=== PATIENT | female | born 1945 | race Caucasian/White ===

== ENCOUNTER 2021-06-27 06:51 | Day surgery (SDC) | payer MEDICARE, OTHER ==
[2021-06-21 10:39] LABS: BASOPHILS % (AUTO) 0.5 % (0-1); EOSINOPHILS # (AUTO) 0.3 X10'3 (0-0.9); LYMPHOCYTES # (AUTO) 2.8 X10'3 (1.1-4.8); LYMPHOCYTES % (AUTO) 48.6 % (21-51); MEAN CORPUSCULAR HEMOGLOBIN 32.1 PG (27.0-31.0); MEAN CORPUSCULAR HGB CONC 34.1 g/dL (33.0-36.5); MEAN CORPUSCULAR VOLUME 94.2 FL (78-98); MEAN PLATELET VOLUME 9.1 FL (7.4-10.4); MONOCYTES # (AUTO) 0.7 X10'3 (0-0.9); MONOCYTES % (AUTO) 11.4 % (2-12); NEUTROPHILS % (AUTO) 34.5 % (42-75); PRE OP HEMATOCRIT 40.9 % (35.0-45.0); PRE OP HEMOGLOBIN 13.9 g/dL (12.0-16.0); PRE OP PLATELET COUNT 156 X10'3 (140-440); RED BLOOD COUNT 4.34 X10'6 (4.20-5.60); RED CELL DISTRIBUTION WIDTH 14.1 % (11.5-14.5)
[2021-06-21 11:19] LABS: ALBUMIN 3.3 G/DL (3.4-5.0); ALKALINE PHOSPHATASE 95 IU/L (46-116); BLOOD UREA NITROGEN 14 MG/DL (7-18); BUN/CREATININE RATIO 17.3 (6.6-38.0); CALCIUM 8.1 MG/DL (8.5-10.1); CHLORIDE 110 MMOL/L (99-107); CREATININE 0.81 MG/DL (0.40-0.90); PRE OP ALT 39 U/L (30-65); PRE OP ANION GAP 9 (8-16); PRE OP AST 30 U/L (10-37); PRE OP BILIRUB, TOTAL 0.3 MG/DL (0.0-1.0); PRE OP GLUCOSE 105 MG/DL (70-104); PRE OP POTASSIUM 4.1 MMOL/L (3.4-5.1); PRE OP SODIUM 145 MMOL/L (135-145); TOTAL CARBON DIOXIDE 26.3 MMOL/L (24-32); TOTAL PROTEIN 6.5 G/DL (6.4-8.2); eGFR 69 ML/MIN
[~2021-06-27] VITALS: Ht 160 cm; Wt 75.8 kg
[2021-06-27] VITALS (8 sets, daily range): BP systolic 145–165; BP diastolic 57–95
[~2021-06-27 06:51] MED LIST: METO-395 PO; MONT-40 PO; OMEP-50 PO; clindamycin-Cleocin 900mg/D5W 50 ML IV ONE; famotidine 20mg tablet PO ONE; ringers solution, lacted 1,000 ML IV SCH
[2021-06-27] MEDS ORDERED: sevoflurane 250ml liquid IH ONE (09:54)
[2021-06-27] MEDS ORDERED: fentaNYL /PF 50mcg/ml 5ml ampule ONE (09:59)
[2021-06-27] MEDS ORDERED: midazolam 1 mg/ML 2ml injection ONE (09:59)
[2021-06-27] MEDS ORDERED: BUPIVACAINE liposomal/PF 13.3 MG/ML vial IM ONE (10:11)
[2021-06-27] MEDS ORDERED: BUPIVAcaine/PF 2.5mg/ml (0.25%) 10ml vial ONE (10:11)
[2021-06-27] MEDS ORDERED: LIDOcaine 1% 30ml preserv. free vial ONE (10:11)
[2021-06-27] MEDS ORDERED: BUPIVAcaine 0.5% inj/PF 30 ML ONE (10:11)
[2021-06-27] MEDS ORDERED: ringers solution, lacted 1,000 ML IV SCH (10:15)
[2021-06-27] MEDS ORDERED: ondansetron/PF 4mg/2ml inj IV PRN (10:15)
[2021-06-27] MEDS ORDERED: morphine 4 MG/ML inj SYRINge IV PRN (10:15)
[2021-06-27] MEDS ORDERED: acetaminophen 1,000mg/100ml IV 100 ML IV PRN (10:15)
[2021-06-27] MEDS ORDERED: morphine 2 MG/ML inj. syringe IV PRN (10:15)
[2021-06-27] MEDS ORDERED: proCHLORperazine 10 MG/2 ml inj IV PRN (10:15)
[2021-06-27] MEDS ORDERED: labetalol 20mg/4ml (5mg/ml) syringe IV PRN (10:15)
[2021-06-27] MEDS ORDERED: meperidine/PF 25mg/ml syringe IV PRN ×3 (10:15)
[2021-06-27] MEDS ORDERED: hydrALAZINE 20mg/ml inj. IV PRN (10:15)
[2021-06-27] MEDS ORDERED: rocuronium 10mg/ml inj IV ONE (11:00)
[2021-06-27] MEDS ORDERED: 0.9 % SODIUM CHLORIDE 10 ML VIAL ONE (11:00)
[2021-06-27] MEDS ORDERED: propofol inj 20 ML IV ONE (11:00)
[2021-06-27] MEDS ORDERED: ePHEDrine 50MG/ML INJ. ONE (11:01)
[2021-06-27] MEDS ORDERED: ondansetron/PF 4mg/2ml inj ONE (11:01)
[2021-06-27] MEDS ORDERED: LIDOcaine 2% (20mg/ml) 5ml vial ONE (11:01)
[2021-06-27] MEDS ORDERED: dexamethasone sod phosphate 4mg/ml inj. ONE (11:01)
[2021-06-27] MEDS ORDERED: glycopyrrolate 0.2mg/ml inj ONE (11:43)
[2021-06-27] MEDS ORDERED: neostigmine methylsulfate 1 MG/ML 10ml vial ONE (11:43)
[2021-06-27] MEDS ORDERED: oxyCODONE/APAP 5-325mg tablet PO PRN ×2 (12:10)
--- NOTE | 2021-06-27 12:10 | NUR ---
ADMITTED TO PACU FROM OR ACCOMPANIED BY ANESTHESIA. INTIAL PHYSICAL ASSESSMENT DONE AND RECORDED. REPORT RECEIVED FROM ANESTHESIA.
--- NOTE | 2021-06-27 13:45 | NUR ---
DISCHARGE CRITERIA MET, DISCHARGE INSTRUCTIONS GIVEN, DEMONSTRATES VERBAL UNDERSTANDING. DISCHARGED HOME IN GOOD CONDITION.
== END 2021-06-27 13:45 | disposition home or self-care (01) ==
LOC: PAS 06:51
PROVIDERS: ATTEND Surgery
DX: K43.0 Incisional hernia with obstruction, without gangrene (principal); I10 Essential (primary) hypertension; K21.9 Gastro-esophageal reflux disease without esophagitis; Z79.899 Other long term (current) drug therapy; Z20.822 Contact with and (suspected) exposure to COVID-19; Z88.1 Allergy status to other antibiotic agents; Z88.0 Allergy status to penicillin; Z88.5 Allergy status to narcotic agent; Z90.49 Acquired absence of other specified parts of digestive tract; Z98.890 Other specified postprocedural states; Z85.820 Personal history of malignant melanoma of skin; Z80.42 Family history of malignant neoplasm of prostate; Z80.8 Family history of malignant neoplasm of other organs or systems; Z82.61 Family history of arthritis
CPT/HCPCS: 36415; 49657; 64488; 80053; 82948; 85025; 93005; C1781; C9290; J1100; J2250; J2405; J2704; J2710; J3010; J3490; J7030; J7120; S0020; U0003; U0005; Z7506; Z7508; Z7512; A4215; A4618

== ENCOUNTER 2023-12-26 12:41 | Outpatient (CLI) | payer MEDICARE, OTHER ==
[~2023-12-26 12:41] MED LIST changes: -OMEP-50 PO; +OMEP20CA16 PO; -clindamycin-Cleocin 900mg/D5W 50 ML IV ONE; -famotidine 20mg tablet PO ONE; -ringers solution, lacted 1,000 ML IV SCH
== END 2023-12-26 23:59 | disposition home or self-care (01) ==
LOC: RAD 12:41
PROVIDERS: ATTEND Specialist
DX: M19.011 Primary osteoarthritis, right shoulder (principal); M25.511 Pain in right shoulder; M75.101 Unspecified rotator cuff tear or rupture of right shoulder, not specified as traumatic
CPT/HCPCS: 73200

== ENCOUNTER 2024-02-25 08:00 | Day surgery (SDC) | payer MEDICARE, OTHER ==
[~2024-02-25] VITALS: Ht 160 cm; Wt 74.7 kg
[2024-02-25] VITALS (27 sets, daily range): BP systolic 118–148; BP diastolic 59–78; PULSE 72–107; RESP 12–20; TEMP 96.1–97.9; O2SAT 90–100
[~2024-02-25 08:00] MED LIST changes: +LEVO100T9 PO; -OMEP20CA16 PO; +OMEP40CA21 PO
[2024-02-25] MEDS: famotidine 20mg tablet PO ONE (08:56)
[2024-02-25] MEDS: ringers solution, lacted 1,000 ML IV SCH (08:56)
[2024-02-25] MEDS: tranexamic acid inj. 1,000 MG in normal saline IV soln 100ML IV ONE (08:56)
[2024-02-25] MEDS ORDERED: propofol inj 20 ML IV ONE (09:05)
[2024-02-25] MEDS ORDERED: rocuronium 10mg/ml inj IV ONE (09:05)
[2024-02-25] MEDS ORDERED: ROPIVAcaine 0.5% (5mg/ml) 30ml vial ONE (09:06)
[2024-02-25] MEDS ORDERED: LIDOcaine 2% (20mg/ml) 5ml vial ONE (09:09)
[2024-02-25] MEDS ORDERED: fentaNYL/PF 50MCG/1 ML 2ML syringe ONE (09:10)
[2024-02-25] MEDS ORDERED: midazolam 1 mg/ML 2ml injection ONE (09:11)
[2024-02-25 09:25] LABS: APTT 27 SECONDS (22-32); INR 1.1 INR; PROTHROMBIN TIME 11.5 SECONDS (9.0-12.0)
[2024-02-25 09:28] LABS: ALANINE AMINOTRANSFERASE 35 U/L (12-78); ALBUMIN 3.6 G/DL (3.4-5.0); ALKALINE PHOSPHATASE 84 IU/L (46-116); ANION GAP 7 (8-16); ASPARTATE AMINO TRANSFERASE 26 U/L (10-37); BILIRUBIN,TOTAL 0.5 MG/DL (0.1-1.0); BLOOD UREA NITROGEN 8 MG/DL (7-18); BUN/CREATININE RATIO 11.1 (10.0-20.0); CALCIUM 8.8 MG/DL (8.5-10.1); CHLORIDE 103 MMOL/L (99-107); CREATININE 0.72 MG/DL (0.40-0.90); GLUCOSE 116 MG/DL (70-104); POTASSIUM 3.9 MMOL/L (3.5-5.1); SODIUM 136 MMOL/L (135-145); TOTAL CARBON DIOXIDE 26.3 MMOL/L (24-32); TOTAL PROTEIN 7.1 G/DL (6.4-8.2); eCRCL 52 ML/MIN; eGFR 78 ML/MIN
[2024-02-25] MEDS ORDERED: vancomycin/NS 1 GM ADD-VANTAGE 250 ML IV ONE (09:55)
[2024-02-25] MEDS ORDERED: sevoflurane 250ml liquid IH ONE (09:59)
[2024-02-25] MEDS ORDERED: esmolol inj. 10 ML IV ONE (10:18)
[2024-02-25] MEDS ORDERED: acetaminophen 325mg tablet PO PRN (10:20)
[2024-02-25] MEDS ORDERED: naloxone 0.4 mg/ml inj IV PRN (10:20)
[2024-02-25] MEDS ORDERED: HYDROcodone/acetaminophen 5mg/325mg tablet PO PRN (10:20)
[2024-02-25] MEDS ORDERED: diphenhydrAMINE 25mg capsule PO PRN (10:20)
[2024-02-25] MEDS ORDERED: bisacodyl 10mg suppository rectal RC PRN (10:20)
[2024-02-25] MEDS ORDERED: ondansetron/PF 4mg/2ml inj IV PRN (10:20)
[2024-02-25] MEDS ORDERED: magnesium hydroxide 30ml (MOM) UD suspension PO PRN (10:20)
[2024-02-25] MEDS ORDERED: sugammadex 200mg/2ml injection IV ONE (10:30)
[2024-02-25] MEDS ORDERED: vancomycin 1,000mg inj ONE (11:03)
[2024-02-25] MEDS: vancomycin 1,000mg inj IVT ONE (11:10)
[2024-02-25] MEDS: cefazolin 2gm/D5W 100mL 100 ML IV ONE (14:45)
[2024-02-25] MEDS: VANCOMYCIN 1,500MG in NS 300ml IVPB IV ONE (15:00)
[2024-02-25] MEDS: potassium cl 20mEq in 1/2 NS 1,000 ML IV SCH (16:43)
[2024-02-25] MEDS: vancomycin/NS 1 GM ADD-VANTAGE 250 ML IV SCH (22:13)
[2024-02-26 02:28] VITALS: BP 118/63; PULSE 78; RESP 16; TEMP 96.3; O2SAT 96
[2024-02-26] MEDS: HYDROcodone/acetaminophen 5mg/325mg tablet PO PRN (05:10)
[2024-02-26 06:00] VITALS: BP 132/65; PULSE 81; RESP 15; TEMP 96.6; O2SAT 97
[2024-02-26] MEDS: levoTHYROXINE 100mcg tablet PO SCH (07:10)
[2024-02-26 10:00] VITALS: BP 116/76; PULSE 109; RESP 16; TEMP 97.1; O2SAT 96
[2024-02-26 11:22] LABS: BASOPHILS % (AUTO) 0.2 % (0-1); EOSINOPHILS # (AUTO) 0.1 X10'3 (0-0.9); EOSINOPHILS % (AUTO) 0.6 % (0-6); HEMATOCRIT 39.4 % (35.0-45.0); LYMPHOCYTES # (AUTO) 2.6 X10'3 (1.1-4.8); LYMPHOCYTES % (AUTO) 23.4 % (21-51); MEAN CORPUSCULAR HEMOGLOBIN 30.9 PG (27.0-31.0); MEAN CORPUSCULAR HGB CONC 32.9 g/dL (33.0-36.5); MEAN CORPUSCULAR VOLUME 93.9 FL (78-98); MEAN PLATELET VOLUME 9.8 FL (7.4-10.4); MONOCYTES # (AUTO) 1.5 X10'3 (0-0.9); MONOCYTES % (AUTO) 13.6 % (2-12); NEUTROPHILS % (AUTO) 62.2 % (42-75); PLATELET COUNT 163 X10'3 (140-440); RED CELL DISTRIBUTION WIDTH 13.9 % (11.5-14.5); WHITE BLOOD COUNT 11.2 X10'3 (4.5-11.0)
[2024-02-26 11:37] LABS: ALANINE AMINOTRANSFERASE 34 U/L (12-78); ALBUMIN 3.3 G/DL (3.4-5.0); ALKALINE PHOSPHATASE 62 IU/L (46-116); ANION GAP 6 (8-16); ASPARTATE AMINO TRANSFERASE 37 U/L (10-37); BILIRUBIN,TOTAL 0.6 MG/DL (0.1-1.0); BLOOD UREA NITROGEN 10 MG/DL (7-18); BUN/CREATININE RATIO 13.9 (10.0-20.0); CALCIUM 8.5 MG/DL (8.5-10.1); CHLORIDE 103 MMOL/L (99-107); CREATININE 0.72 MG/DL (0.40-0.90); GLUCOSE 88 MG/DL (70-104); SODIUM 137 MMOL/L (135-145); TOTAL CARBON DIOXIDE 27.7 MMOL/L (24-32); TOTAL PROTEIN 6.7 G/DL (6.4-8.2); eCRCL 52 ML/MIN; eGFR 78 ML/MIN
[2024-02-26] MEDS ORDERED: montelukast 10mg tablet PO SCH (21:00)
[2024-02-26] MEDS ORDERED: metoprolol succinate 25mg (24-HOUR) SR. Tablet PO SCH (21:00)
[2024-02-26] MEDS ORDERED: pantoprazole 40mg Tablet.DR PO SCH (21:00)
== END 2024-02-26 12:06 | disposition home or self-care (01) ==
LOC: PAS 08:00 → ORTHO 4S 15:10 → PAS 16:35
PROVIDERS: ATTEND Specialist
DX: M75.101 Unspecified rotator cuff tear or rupture of right shoulder, not specified as traumatic (principal); I48.91 Unspecified atrial fibrillation; J44.9 Chronic obstructive pulmonary disease, unspecified; E89.0 Postprocedural hypothyroidism; K21.9 Gastro-esophageal reflux disease without esophagitis; I25.2 Old myocardial infarction; M19.90 Unspecified osteoarthritis, unspecified site; Z79.82 Long term (current) use of aspirin; Z79.890 Hormone replacement therapy; Z79.891 Long term (current) use of opiate analgesic; Z79.899 Other long term (current) drug therapy; Z90.49 Acquired absence of other specified parts of digestive tract; Z98.890 Other specified postprocedural states; Z88.0 Allergy status to penicillin
CPT/HCPCS: 23430; 23472; 36415; 71046; 73030; 80053; 82948; 84443; 85025; 85610; 85730; 86885; 86900; 86901; 87081; 97161; 97530; A4565; A4615; A4618; A6402; A6455; A7000; C1776; J0690; J1100; J2001; J2250; J2405; J2704; J2795; J3010; J3370; J3480; J3490; J7030; J7040; J7120; Z7506; Z7508; Z7512; Z7610; 76000; A6449; G0378